=== PATIENT | male | born 1935 | race Caucasian/White ===

== ENCOUNTER 2019-02-13 17:21 | Outpatient (CLI) | payer MEDICARE ==
[2019-02-13 17:59] LABS: Anion Gap 15 mmol/L (10-20); BUN (Urea Nitrogen) 30 mg/dL (8.4-25.7); Calc. Creatinine Clearance 0 mL/min (70-130); Calcium 10.1 mg/dL (7.8-10.44); Carbon Dioxide 26 mmol/L (23-31); Chloride 102 mmol/L (98-107); Estimated GFR-MDRD 38; Glucose 103 mg/dL (83-110); Potassium 4.3 mmol/L (3.5-5.1); Sodium 139 mmol/L (136-145)
[2019-02-13 19:26] LABS: Bilirubin Negative (Negative); Blood, Urine Trace (Negative); Clarity Clear (Clear); Glucose, Urine (Dipstick) Negative (Negative); Leukocyte Negative (Negative); Nitrite Negative (Negative); Protein, Urine (Dipstick) Negative (Neg-Trace); Urobilinogen 0.2 mg/dL (0.2-1.0); pH, Urine 5.5 (5.0-9.0)
[2019-02-13 19:59] LABS: Bacteria/HPF None Seen HPF (None Seen); RBC/HPF None Seen HPF (0-3); Squamous Epithelial 0-3 HPF (0-3); WBC/HPF None Seen HPF (0-3)
== END 2019-02-13 17:22 | disposition home or self-care (01) ==
LOC: NAV LAB 17:21
PROVIDERS: ATTEND Family Medicine
DX: N18.3 Chronic kidney disease, stage 3 (moderate) (principal); N23 Unspecified renal colic
CPT/HCPCS: 36415; 80048; 81003; 81015

== ENCOUNTER 2019-02-17 11:41 | Outpatient (CLI) | payer MEDICARE ==
--- NOTE | 2019-02-17 12:29 | RAD ---
FXR Hip Rt 2-3 View: 02/17/2019 12:03 PM CLINICAL INDICATION: Acute pain COMPARISON: None. FINDINGS: Fracture:No fracture. Arthropathy:Moderate arthropathy. Incidental findings:None of significance. IMPRESSION: 1. No acute osseous abnormality.
--- NOTE | 2019-02-17 12:40 | RAD ---
FRONTAL VIEW CHEST FOUR VIEW RIGHT RIB SERIES: CLINICAL INDICATION: Pain, right-sided. FINDINGS: Enlarged cardiac silhouette with adjacent pleural-based density. Numerous calcified pleural plaques o verlie the chest bilaterally. The lungs are hyperinflated. No free air is visualized. No displaced right rib fracture evident. Scattered osseous degenerative and vascular calcification. IMPRESSION: 1. Numerous calcified pleural plaques. Correlate for evidence of asbestos-related pleural disease . 2. Enlarged cardiac silhouette with adjacent pleural-based density that may represent pleural effusio n and/or pleural-based thickening. 3. No discrete, acute right rib fracture. Transcribed Date/Time: 02/17/2019 12:52 PM
--- NOTE | 2019-02-17 15:02 | ULT ---
US Soft Tissue Other History: [M 24.551 acute right hip pain] Comparison: Radiograph same day Findings: Real-time grayscale evaluation of the right hip was performed. No mass. No hematoma. No ole dence for fascial gloving. Impression: No soft tissue injury.
== END 2019-02-17 11:42 | disposition home or self-care (01) ==
LOC: NAV RAD 11:41
PROVIDERS: ATTEND Family Medicine
DX: R07.81 Pleurodynia (principal); M25.551 Pain in right hip; M54.9 Dorsalgia, unspecified; J92.9 Pleural plaque without asbestos
CPT/HCPCS: 76999